=== PATIENT | male | born 1975 | race Hispanic/Latino ===

== ENCOUNTER 2023-05-20 21:19 | Inpatient (IN) | payer SELFPAY ==
[~2023-05-20] VITALS: Ht 160 cm; Wt 93.0 kg
[2023-05-20] MEDS ORDERED: SODIUM CHLORIDE 0.9% 1000ML 1,000 ML IV STA (21:38)
[2023-05-20] MEDS ORDERED: ONDANSETRON HCL INJ 2MG/ML 2ML 2 MG/ML VIAL IV STA (21:38)
[2023-05-20] MEDS ORDERED: FAMOTIDINE 20 MG/2 ML VIAL IV STA (21:38)
[2023-05-20 21:46] LABS: BASOPHILS # (AUTO) 0.1 (0.0-0.1); BASOPHILS % 0.6 % (0.0-1.0); EOSINOPHILS % 0.4 % (0.0-6.0); HEMATOCRIT 47.9 % (38.2-49.6); LYMPHOCYTES # (AUTO) 1.2 (1.0-3.2); LYMPHOCYTES % 10.9 % (18.0-39.1); MEAN CORPUSCULAR HEMOGLOBIN 28.6 pg (28-32); MEAN CORPUSCULAR HGB CONC 33.4 g/dL (31-35); MEAN CORPUSCULAR VOLUME 85.7 fL (81-99); MONOCYTES # (AUTO) 0.3 (0.2-0.8); MONOCYTES % 2.8 % (4.4-11.3); NEUTROPHILS # (AUTO) 9.2 (2.1-6.9); NEUTROPHILS % 84.9 % (38.7-80.0); PLATELET COUNT 296 x10e3/uL (140-360); RED BLOOD COUNT 5.59 x10e6/uL (4.3-5.7); RED CELL DISTRIBUTION WIDTH 12.9 % (11.7-14.4); WHITE BLOOD COUNT 10.88 x10e3/uL (4.8-10.8)
[2023-05-20 21:54] LABS: BILIRUBIN,URINE NEGATIVE (NEGATIVE); CLARITY,URINE SL CLOUDY (CLEAR); COLOR,URINE YELLOW (YELLOW); GLUCOSE, URINE NEGATIVE (NEGATIVE); KETONES,URINE NEGATIVE (NEGATIVE); LEUKOCYTE ESTERASE ,URINE NEGATIVE (NEGATIVE); NITRITE,URINE NEGATIVE (NEGATIVE); PH,URINE 5.5 (5 - 7); PROTEIN,URINE DIPSTICK NEGATIVE (NEGATIVE); URINE UROBILINOGEN 0.2 mg/dL (0.2 - 1)
[2023-05-20 22:02] LABS: ALBUMIN 4.2 g/dL (3.5-5.0); BILIRUBIN,TOTAL 0.4 mg/dL (0.2-1.2); CALCIUM 10.1 mg/dL (8.4-10.2); CREATININE, SERUM 1.07 mg/dL (0.72-1.25); TOTAL PROTEIN 8.4 g/dL (6.5-8.1)
[2023-05-20 22:32] LABS: ANION GAP 17.2 mmol/L (8-16); POTASSIUM 4.2 mmol/L (3.5-5.1)
[2023-05-20] MEDS ORDERED: ONDANSETRON HCL INJ 2MG/ML 2ML 2 MG/ML VIAL IV PRN (23:15)
[2023-05-20] MEDS ORDERED: SODIUM CHLORIDE 0.9% 1000ML 1,000 ML IV SCH (23:15)
[2023-05-20] MEDS ORDERED: Morphine 4mg INJECTION 4 MG/ML INJ IV PRN (23:15)
[2023-05-21] VITALS (7 sets, daily range): BP systolic 115–152; BP diastolic 67–92; PULSE 50–74; RESP 16–20; TEMP 97.5–98; O2SAT 98–100
[2023-05-21] MEDS ORDERED: IOPAMIDOL 370 MG/ML 100 ML INFUS..BTL INJ ONE (00:53)
[2023-05-21 04:24] LABS: BASOPHILS # (AUTO) 0.1 (0.0-0.1); BASOPHILS % 0.6 % (0.0-1.0); EOSINOPHILS % 0.2 % (0.0-6.0); HEMATOCRIT 42.6 % (38.2-49.6); HEMOGLOBIN 14.7 g/dL (14.0-18.0); LYMPHOCYTES # (AUTO) 1.6 (1.0-3.2); LYMPHOCYTES % 16.1 % (18.0-39.1); MEAN CORPUSCULAR HEMOGLOBIN 28.6 pg (28-32); MEAN CORPUSCULAR HGB CONC 34.5 g/dL (31-35); MEAN CORPUSCULAR VOLUME 82.9 fL (81-99); MONOCYTES # (AUTO) 0.6 (0.2-0.8); MONOCYTES % 5.9 % (4.4-11.3); NEUTROPHILS # (AUTO) 7.5 (2.1-6.9); NEUTROPHILS % 76.8 % (38.7-80.0); PLATELET COUNT 299 x10e3/uL (140-360); RED BLOOD COUNT 5.14 x10e6/uL (4.3-5.7); RED CELL DISTRIBUTION WIDTH 12.9 % (11.7-14.4); WHITE BLOOD COUNT 9.71 x10e3/uL (4.8-10.8)
[2023-05-21 04:46] LABS: ALBUMIN 3.5 g/dL (3.5-5.0); ANION GAP 12.6 mmol/L (8-16); BILIRUBIN,TOTAL 0.3 mg/dL (0.2-1.2); CALCIUM 8.4 mg/dL (8.4-10.2); CREATININE, SERUM 0.79 mg/dL (0.72-1.25); POTASSIUM 3.6 mmol/L (3.5-5.1); TOTAL PROTEIN 7.1 g/dL (6.5-8.1)
[2023-05-21] MEDS ORDERED: DOCUSATE SODIUM 100 MG CAP PO PRN (08:45)
[2023-05-21] MEDS ORDERED: SIMETHICONE 80 MG CHEW PO PRN (08:45)
[2023-05-21] MEDS: SODIUM CHLORIDE 0.9% 1000ML 1,000 ML IV SCH ×3 (08:45→23:32)
[2023-05-21] MEDS ORDERED: ALBUTEROL/IPRATROPIUM 3 ML NEB NEB PRN (08:45)
[2023-05-21] MEDS ORDERED: LACTATED RINGER'S 1,000 ML INJ SCH (08:45)
[2023-05-21] MEDS ORDERED: FAMOTIDINE 20 MG/2 ML VIAL IV SCH (09:00)
[2023-05-21 09:43] LABS: CHOL/HDL RATIO 7.3 (3.9-4.7)
[2023-05-21] MEDS ORDERED: HYDROCHLOROTHIA25 MG PO (11:47)
[2023-05-21] MEDS ORDERED: IRBESARTAN150 MG PO (11:47)
[2023-05-21] MEDS: FAMOTIDINE 20 MG/2 ML VIAL IV SCH (21:06)
[2023-05-21] MEDS: ACETAMINOPHEN 325 MG TAB PO PRN (21:07)
[2023-05-21] MEDS: MELATONIN 3 MG TAB PO PRN (21:07)
[2023-05-22] VITALS (8 sets, daily range): BP systolic 104–158; BP diastolic 58–90; PULSE 50–57; RESP 16–18; TEMP 97.6–98.2; O2SAT 98–100
[2023-05-22] MEDS: SODIUM CHLORIDE 0.9% 1000ML 1,000 ML IV SCH ×3 (05:42→17:23)
[2023-05-22] MEDS: FAMOTIDINE 20 MG/2 ML VIAL IV SCH ×2 (09:47→20:43)
[2023-05-22] MEDS: ACETAMINOPHEN 325 MG TAB PO PRN ×2 (09:54→20:54)
[2023-05-22] MEDS: MELATONIN 3 MG TAB PO PRN (20:53)
[2023-05-23] VITALS (8 sets, daily range): BP systolic 122–145; BP diastolic 70–84; PULSE 51–62; RESP 18–20; TEMP 97.7–98.2; O2SAT 97–100
[2023-05-23] MEDS: SODIUM CHLORIDE 0.9% 1000ML 1,000 ML IV SCH ×3 (01:58→14:05)
[2023-05-23] MEDS: FAMOTIDINE 20 MG/2 ML VIAL IV SCH ×2 (09:43→20:57)
[2023-05-23] MEDS ORDERED: ATORVASTATIN 40 MG TAB PO SCH (21:00)
[2023-05-24 00:01] VITALS: BP 117/67; PULSE 50; RESP 18; TEMP 97.9; O2SAT 96
[2023-05-24] MEDS: SODIUM CHLORIDE 0.9% 1000ML 1,000 ML IV SCH ×2 (00:29→03:33)
[2023-05-24 03:44] VITALS: BP 123/76; PULSE 53; RESP 18; TEMP 97.9; O2SAT 99
[2023-05-24 08:00] VITALS: BP 139/88; PULSE 62; RESP 19; TEMP 98.4; O2SAT 100
[2023-05-24] MEDS ORDERED: ONDANSETRON HCL 4 MG ORAL DISINTEGRATING TAB PO PRN (08:30)
[2023-05-24] MEDS: FAMOTIDINE 20 MG/2 ML VIAL IV SCH (09:11)
[2023-05-24 09:48] VITALS: PULSE 69; RESP 18; O2SAT 98
[2023-05-24] MEDS ORDERED: ATORVASTATIN CA40 MG PO ×2 (10:17→20:53)
[2023-05-24] MEDS ORDERED: FAMOTIDINE20 MG PO ×2 (10:17→20:53)
[2023-05-24] MEDS ORDERED: HYDRALAZINE HCL10 MG PO ×2 (10:59→11:02)
== END 2023-05-24 11:20 | disposition home or self-care (01) | DRG 440 ==
LOC: ER 21:28 → ERHOLD 23:02 → MED/SURG 05-21 15:40
PROVIDERS: ADMIT Internal Medicine; ATTEND Internal Medicine
DX: K85.90 Acute pancreatitis without necrosis or infection, unspecified (principal); K76.0 Fatty (change of) liver, not elsewhere classified; E78.5 Hyperlipidemia, unspecified; E86.0 Dehydration; E66.9 Obesity, unspecified; Z68.36 Body mass index [BMI] 36.0-36.9, adult; R91.1 Solitary pulmonary nodule; I10 Essential (primary) hypertension; Z20.822 Contact with and (suspected) exposure to COVID-19
CPT/HCPCS: 36415; 74177; 76705; 80053; 80061; 80320; 81001; 83036; 83690; 85025; 93005; 94799; 99284; J2270; J2405; J7030; Q9967; U0002